=== PATIENT | female | born 1970 | race Caucasian/White ===

== ENCOUNTER 2021-03-03 11:01 | Outpatient (CLI) | payer BC ==
[2021-03-03 12:55] LABS: #Basophils 0.1 10x3/uL (0.0-0.2); #Eosinphils 0.3 10x3/uL (0.0-0.5); #Monocytes 0.8 10x3/uL (0.0-1.1); #Neutrophils 4.2 10x3/uL (1.5-8.4); %Basophils 0.6 % (0.0-2.0); %Lymphocytes 36.6 % (18.0-47.0); %Monocytes 9.5 % (0.0-10.0); %Neutrophils 49.8 % (40.0-75.0); Hemoglobin 13.1 g/dL (12.0-15.5); Mean Corpuscular HGB CONC 33.7 g/dL (32.0-36.0); Mean Corpuscular Hemoglobin 30.8 pg (27.0-33.0); Mean Corpuscular Volume 91.5 fl (81.6-98.3); Mean Platelet Volume 11.3 fl (7.4-10.4); Platelet Count 310 10x3/uL (150-450); RBC Distribution Width 12.5 % (11.5-14.5); Red Blood Cell (RBC) Count 4.25 10x6/uL (3.90-5.03); White Blood Cell (WBC) Count 8.4 10x3/uL (3.5-10.5)
[2021-03-03 12:58] LABS: BHCG - Serum Negative (NEGATIVE); Pregs Control Background? CLEAR/WHITE (CLR/WHITE); Pregs Control Bar Appear? YES (CONTROL BAR)
[2021-03-03 13:08] LABS: ALT (SGPT) 103 U/L (8-55); AST (SGOT) 56 U/L (5-34); Albumin 4.7 g/dL (3.5-5.0); Alkaline Phosphatase 78 U/L (40-110); Anion Gap 14 mmol/L (10-20); BUN (Urea Nitrogen) 14 mg/dL (7.0-18.7); Calc. Creatinine Clearance 0 mL/min (70-130); Calcium 9.8 mg/dL (7.8-10.44); Carbon Dioxide 25 mmol/L (22-29); Chloride 102 mmol/L (98-107); Globulin 2.3 g/dL (2.4-3.5); Glucose 90 mg/dL (70-105); Potassium 4.3 mmol/L (3.5-5.1); Sodium 137 mmol/L (136-145)
[2021-03-03 17:04] LABS: Hemoglobin A1c 5.6 % (4.0-6.0)
[2021-03-04 00:15] LABS: SARS-CoV-2 PCR by NAA Not Detected (NotDetected)
== END 2021-03-03 11:02 | disposition home or self-care (01) ==
LOC: LABBT 11:01
PROVIDERS: ATTEND Surgery
DX: Z01.818 Encounter for other preprocedural examination (principal); Z20.822 Contact with and (suspected) exposure to COVID-19
CPT/HCPCS: 71046; 80053; 83036; 84703; 85025; 93005; 93010; U0003; U0005

== ENCOUNTER 2021-03-03 11:30 | Inpatient (IN) | payer BC ==
[2021-03-04 14:52] VITALS: BMI 38.7
[2021-03-06] MEDS ORDERED: Ketamine 50 MG/ML (10ML VIAL) ONE (08:43)
[2021-03-06] MEDS ORDERED: Fentanyl 100 MCG/2 ML VIAL ONE (08:43)
[2021-03-06] MEDS ORDERED: ceFAZolin 2 GM/DEX 5% 100 ML BAG ONE (08:51)
[2021-03-06] MEDS ORDERED: Bupivacaine 0.25% 10 ML VIAL ONE (08:53)
[2021-03-06] MEDS ORDERED: Lidocaine 1% w/Epinephrine 1:100K 20 ML VIAL ONE (08:53)
[2021-03-06] MEDS ORDERED: Midazolam HCl 2 mg/2 ml Vial ONE (09:05)
[2021-03-06] MEDS ORDERED: Ondansetron PF 4 MG/2 ML Vial ONE (09:37)
[2021-03-06] MEDS ORDERED: Ketorolac Tromethamine 30 MG/ML VIAL ONE (09:37)
[2021-03-06] MEDS ORDERED: PROPOFOL 200 MG/20 ML VIAL ONE (09:37)
[2021-03-06] MEDS ORDERED: Dexamethasone 20 MG/5 ML VIAL ONE (09:37)
[2021-03-06] MEDS ORDERED: Glycopyrrolate 0.2 MG/ML 5 ML SYRINGE ONE (09:37)
[2021-03-06] MEDS ORDERED: Labetalol HCl 100 MG/20 ML VIAL ONE (09:37)
[2021-03-06] MEDS ORDERED: Rocuronium Bromide 10 MG/ML (10ML VIAL) ONE (09:37)
[2021-03-06] MEDS ORDERED: Lidocaine 1% PF 5 ML VIAL ONE (09:37)
[2021-03-06] MEDS ORDERED: Ondansetron HCl/PF 4 MG/2 ML Vial IVP PRN (10:21)
[2021-03-06] MEDS ORDERED: Promethazine HCl 25 MG/ML VIAL IVPB PRN (10:21)
[2021-03-06] MEDS ORDERED: Promethazine HCl 25 MG/ML VIAL IM PRN ×3 (10:21→11:29)
[2021-03-06] MEDS ORDERED: diphenhydrAMINE 50 MG/ML VIAL IM PRN (11:19)
[2021-03-06] MEDS ORDERED: Naloxone HCl 0.4 mg/ml Vial IV PRN (11:19)
[2021-03-06] MEDS ORDERED: Ondansetron PF 4 MG/2 ML Vial IVP PRN ×2 (11:19→11:29)
[2021-03-06] MEDS ORDERED: diphenhydrAMINE 50 MG/ML VIAL IVP PRN ×2 (11:19→11:29)
[2021-03-06] MEDS ORDERED: Ketorolac Tromethamine 30 MG/ML VIAL IVP PRN (11:19)
[2021-03-06] MEDS ORDERED: diphenhydrAMINE 25 MG CAP PO PRN (11:19)
[2021-03-06] MEDS ORDERED: fentaNYL Citrate/PF 2,000 MCG in Sodium Chloride 0.9% 60 ML IV SCH (11:19)
[2021-03-06] MEDS ORDERED: Zolpidem Tartrate 5 MG TAB PO PRN (11:19)
[2021-03-06] MEDS ORDERED: Dextrose 50% Abboject 50 ML SYRINGE SLOW IVP PRN (11:29)
[2021-03-06] MEDS ORDERED: hydrALAZINE 20 MG/ML VIAL SLOW IVP PRN (11:29)
[2021-03-06] MEDS ORDERED: Dextrose 5% in Water 1,000 ML IV PRN (11:29)
[2021-03-06] MEDS ORDERED: Hydrocodone-Acetamin 15 ML UDCUP PO PRN (11:29)
[2021-03-06] MEDS ORDERED: Communication Order-Pharmacy FS SCH (11:30)
[2021-03-06] MEDS ORDERED: hydrALAZINE 20 MG/ML VIAL ONE (11:58)
[2021-03-06] MEDS: D5 1/2 NS w/20 mEq KCL 1,000 ML IV SCH ×2 (17:03→19:40)
[2021-03-06] MEDS ORDERED: Enoxaparin Sodium 40 MG/0.4 ML SYRINGE SC SCH (21:00)
[2021-03-07] MEDS: D5 1/2 NS w/20 mEq KCL 1,000 ML IV SCH (01:35)
[2021-03-07 05:59] LABS: #Lymphocytes 2.1 thou/uL (1.20-3.40); #Neutrophils 10.4 thou/uL (1.40-6.50); %Basophils 0.2 % (0.0-1.0); %Eosinophils 0.2 % (0.0-10.0); %Lymphocytes 15.4 % (21.0-51.0); %Monocytes 7.5 % (0.0-10.0); %Neutrophils 76.8 % (42.0-75.0); Hemoglobin 13.8 g/dL (12.0-16.0); Mean Corpuscular HGB CONC 34.7 g/dL (32.0-36.0); Mean Corpuscular Hemoglobin 32.4 pg (27.0-31.0); Mean Corpuscular Volume 93.4 fL (78.0-98.0); Mean Platelet Volume 7.9 fL (7.4-10.4); Platelet Count 275 thou/uL (130-400); RBC Distribution Width 11.3 % (11.5-14.5); Red Blood Cell (RBC) Count 4.24 mill/uL (4.20-5.40); White Blood Cell (WBC) Count 13.5 thou/uL (4.8-10.8)
[2021-03-07 06:20] LABS: Anion Gap 14 mmol/L (10-20); BUN (Urea Nitrogen) 7 mg/dL (7.0-18.7); Calc. Creatinine Clearance 153 mL/min (70-130); Calcium 9.5 mg/dL (7.8-10.44); Carbon Dioxide 22 mmol/L (22-29); Chloride 104 mmol/L (98-107); Glucose 120 mg/dL (70-105); Potassium 3.9 mmol/L (3.5-5.1); Sodium 136 mmol/L (136-145)
[2021-03-07 07:59] VITALS: BP 168/91; TEMP 98.3
[2021-03-07] MEDS ORDERED: Pantoprazole 40 MG VIAL IVP SCH (09:00)
== END 2021-03-07 09:20 | disposition home or self-care (01) | DRG 621 ==
LOC: SURG A 03-06 07:38
PROVIDERS: ADMIT Surgery; ATTEND Surgery
PROC: 0DB64Z3 Excision of Stomach, Percutaneous Endoscopic Approach, Vertical (ICD-10-PCS; principal; 2021-03-06)
DX: E66.01 Morbid (severe) obesity due to excess calories (principal); Z68.41 Body mass index [BMI] 40.0-44.9, adult; Z88.1 Allergy status to other antibiotic agents; Z87.891 Personal history of nicotine dependence
CPT/HCPCS: 36415; 71046; 80048; 80053; 83036; 84703; 85025; 88307; 93005; A4649; C1713; C9113; J0360; J1100; J1650; J1885; J2250; J2405; J2704; J3010; J3480; S0020; U0003; U0005

== ENCOUNTER 2021-12-30 14:32 | Outpatient (CLI) | payer BC | END 2021-12-30 14:33 | disposition home or self-care (01) | LOC: BICMAMMO 14:32 | PROVIDERS: ATTEND Student in an Organized Health Care Education/Training Program | DX: N63.14 Unspecified lump in the right breast, lower inner quadrant (principal) | CPT/HCPCS: G0279 ==